=== PATIENT | female | born 1940 | race Caucasian/White ===

== ENCOUNTER 2024-12-11 08:13 | Emergency (ER) | payer MEDICARE, SELFPAY ==
--- OUTSIDE RECORDS SUMMARY | 2016-10-01 05:15 | XMS_ITS | Continuity of Care Document ---
[facility] Organization [facility] Address [address] [place] [address] Phone Care Team Providers [employer] Occupational Therapist Name Role Phone Ryan Verma MD Unavailable Unavailable Allergies, Adverse Reactions, Alerts Substance Reaction Status Criticality No Known Drug Allergies Other Active No I nformation Advance Directives Directive Yes / No Effective Date File Name No Information Encounters Encounter Description Practice Location Reason(s) For Visit Diagnoses Date Provider Providers Copied on Encounter [facility], [address], [place], [place], [address] , tel: [phone] [facility] No Information [address], [place], [address], [place]. tel: [phone] [facility], [address], [place], [place], [address] , tel: [phone] [facility] TOBACCO USE DISORDERHYPERLIPI DEMIA NEC/NOSVACCIN FOR INFLUENZA [address], [address], [place], [place], [address], [place]. tel: [phone] [facility], [address], [place], [place], [address] , tel: [phone] [facility] CHR KIDNEY DIS STAGE IIICHRONIC KIDNEY DIS NOSLONG-TERM USE MEDS NEC [address], [address], [place], [place], [address], . tel:[phone] [facility], [address], [place], [place], [address] , tel: [phone] [facility] SCREEN MAMMOGRAM NECASYMPT POSTMENO STATUS 7 [facility]. [address], [place], [address], [place]. [facility], [address], [place], [place], [address] , tel: [phone] [facility] BENIGN HYPERTENSIONSCREE N LIPOID DISORDERS [address]. [address], [address], [place], [place], [address], . tel:[phone] [facility], [address], [place], [place], [address] , tel: [phone] [facility] HERPES ZOSTER NOS [address]. [address], [address], [place], [place], [address], [place]. tel:[phone] Family History Family Member Type Diagnosis Age At Onset No Information Payers Payer name Insurance type Covered alliance party ID Authoriza tion(s) No Information Social History Type Description Quantity Date Captured Comments Alcohol Use Details Unknown Caffeine Use Details Unknown Tobacco Use Status No Information Smoking Status No Information Sex Female Chief Complaint And Reason For Visit No Information Reason For Referral Reason For Referral No Information History Of Present Illness Encounter Date Complaint History Of Prese nt Illness No Information Functional Status Date Functional Assessmen t No Information Instructions Date Instruction Additional Infor mation No Information Assessments Type Assessment Date No Information Patient Care Teams Name Effective Dates (start - stop) Status Members No Information
--- OUTSIDE RECORDS SUMMARY | 2024-12-09 05:15 | XMS_ITS | Continuity of Care Document ---
Author Organization [facility] Address [address] [facility] [address] [place] [address] Phone Care Team Providers Care Knuckle Bender Name Role Phone Blane MONREAL, Shahida Unavailable Unavailable Allergies, Adverse Reactions, Alerts Substance Reaction Status Criticality No Known Allergies Active No Inform ation Medications Medication Instructions Dosage Effective Dates (start - stop) Status Comments Refresh Tears 0.5 % eye drops instill 1 drop by ophthalmic route every day 1 drop - Active Vitamin D 25 mcg (1000 unit) ORAL TABLET - Active Vazalore 81 mg capsule take 1 capsule by oral route every day 81 MG - Active atorvastatin 80 mg tablet take 1 tablet by oral route every day 80 MG - Active midodrine 5 mg tablet take 2 tablet by o ral route 3 times every day 10 MG - Active carvedilol 6.25 mg tablet take 1 tablet by oral route 2 times every day with food 6.25 MG - Active sacubitril 24 mg-valsartan 26 mg tablet take 1 tablet by oral route every day 1 tablet - Active Jardiance 10 mg tablet take 1 tablet by oral route every day in the morning 10 MG - Active ticagrelor 90 mg tablet take 1 tablet by oral route 2 times every day 90 MG - Active oxybutynin chloride 5 mg/5 mL oral syrup take 5 milliliter by oral route 2 times every day 5 MG - Active Trimo-Ferrell Jelly 0.025 %-0.01 % vaginal - Active Calcium 650 mg ORAL TABLET - Active Calcium 800 ORAL TABLET 1 tablet by mouth once a day - Active Vitamin D3 1,000 unit capsule take 1 by oral route every day 1 - Active Procedures Procedure Date No Charge Optomap Fundus Photos 025 SCODI, Retina Eye Exam & Treatment Drops For Reversing Dilation Ryzumvi Nov Refraction Fundus Photography W/ Report Eye Exam & Treatment Fundus Photography W/ Report Eye Exam & Treatment Fundus Photography W/ Report Eye Exam & Treatment Fundus Photography W/ Report Eye Exam & Treatment Eye Exam & Treatment Eye Exam & Treatment Eye Exam & Treatment Eye Exam & Treatment Post-op Follow-up Visit Office/outpatient Visit, Est After Cataract Laser Surgery Eye Exam & Treatment Eye Exam & Treatment Office/outpatient Visit, Est Post-op Follow-up Visit Post-op Follow-up Visit Post-op Follow-up Visit Remove Cataract, Insert Lens Echo Exam Of Eye-Professional Oct--201 1 Office/outpatient Visit, Est Post-op Follow-up Visit After Cataract Laser Surgery Office/outpatient Visit, Est Office/outpatient Visit, Est Office/outpatient Visit, Est Post-op Follow-up Visit Post-op Follow-up Visit Remove Cataract, Insert Lens Office/outpatient Visit, Est Echo Exam Of Eye Office/outpatient Visit, Est Advance Directives Directive Yes / No Effective Date File Name No Information Encounters Encounter Description Practice Location Reason(s) For Visit Diagnoses Date Provider Providers Copied on Encounter [facility], [address], [place], [place], [address], [place] tel:[phone] SEC [facility] GUILLEN Professional Complete Exam (chief complaint) Nexdtve age-related mclr degn, bilateral, early dry stageChoroida l nevus of right eyePuckering of macula, right eyePresence of intraocular lensVitreous degeneration, left eyeDry eye syndrome of bilateral lacrimal glands Sep-2 5 Blane OD Shahida. [address], [address], [place], [place], [address], [place]. tel:[phone] Referring Provider: Sarbjit Martínez OD, [facility] [address] [place], [address]. tel:[phone] [facility], [facility] [address], [place], [place], [address], [place] tel:[phone] SEC [facility] [place] Professional Complete Exam (chief complaint) Choroidal nevus of right eyePuckering of macula, right eyePresence of intraocular lensVitreous degeneration, left eyeNexdtve age-related mclr degn, bilateral, early dry stage Aug-0 4 Blane OD Shahida. [address], [address], [place], [place], [address], [place]. tel:[phone] Referring Provider: Sarbjit Martínez OD, [facility] [address] [place], [address]. tel:[phone] [facility], [facility] [address], [place], [place], [address], [place] tel:[phone] SEC [place] Professional Complete Exam (chief complaint) Presence of intraocular lensChoroidal nevus of right eyePuckering of macula, right eye July- 3 Dheeraj Figueroa. [address] [facility], [address], [place], [place], [address], [place]. tel:[phone] Referring Provider: Sarbjit Martínez OD, [facility] [address] [place], [address]. tel:[phone] [facility], [facility] [address], [place], [place], [address], [place] tel:[phone] [facility] Professional Complete Exam (chief complaint) Choroidal nevus of right eyePresence of intraocular lensDrusen (degenerative ) of macula, left eye May-0 6-202 2 Dheeraj Figueroa. [address] [facility], [address], [place], [place], [address], [place]. tel:[phone] Referring Provider: Sarbjit Martínez OD, [facility] [address] [place], [address]. tel:[phone] [facility], [address], [place], [place], [address], [place] tel:[phone] SEC [facility] Professional Complete exam (chief complaint) Drusen (degenerative ) of macula, left eyePresence of intraocular lensVitreous degeneration, left eyeChoroidal nevus of right eye May-0 4-202 1 Dheeraj Figueroa. [address] [facility], [address], [place], [place], [address], [place]. tel:[phone] Referring Provider: Sarbjit Martínez OD, [facility] [address] [place], [address]. tel:[phone] [facility], [address], [place], [place], [address], [place] tel:[phone] [facility] Professional Complete Exam (chief complaint) Presence of intraocular lensChoroidal nevus of right eyeVitreous degeneration, left eyeDrusen (degenerative ) of macula, left eye May-0 4-202 1 Dheeraj Figueroa. [address] [facility], [address], [place], [place], [address], [place]. tel:[phone] Referring Provider: Sarbjit Martínez OD, [facility] [address] [place], [address]. tel:[phone] [facility], [address], [place], [place], [address], [place] tel:[phone] [facility] Professional Complete Exam (chief complaint) RPE mottling of maculaVitreou s degeneration, bilateralChor oidal nevus of right eyeDry eye syndrome of bilateral lacrimal glands 0 Dheeraj Figueroa. [address] [facility], [address], [place], [place], [address], [place]. [phone] Referring Provider: Sarbjit Martínez OD, [facility] [address] [place], [address]. tel:[phone] [facility], [address], [place], [place], [address], [place] tel:[phone] [facility] Professional Complete Exam (chief complaint) Presence of intraocular lensRPE mottling of maculaDrusen (degenerative ) of macula, bilateralChor oidal nevus of right eye 9 Dheeraj Figueroa. [address] [facility], [address], [place], [place], [address], [place]. tel:[phone] Referring Provider: Sarbjit Martínez OD, [facility] [address] [place], [address]. tel:[phone] [facility], [address], [place], [place], [address], [place] [phone] [facility] Professional No Information 9 Dheeraj Figueroa. [address] [facility] [address], [place], [place], [address], [place]. tel:[phone] [facility], [address], [place], [place], [address], [place] tel:[phone] [facility] Professional Complete Exam (chief complaint) Presence of intraocular lensNexdtve age-related mclr degn, bilateral, early dry stage Dec-2 7 Jody Mendez. [address] [place], [address], [place]. tel:[phone] Referring Provider: Sarbjit Martínez OD, [facility] [address] [place], [address]. tel:[phone] [facility], [address], [place], [place], [address], [place] tel:[phone] [facility] [place] Professional Complete Exam (chief complaint) No Information 9-201 6 Wankum Melvin. [address], [place], [place], [address], [place]. tel:[phone] Referring Provider: Sarbjit Martínez OD, [facility] [address] [place], [address]. tel:[phone] [facility], [address] [place] [address] [address], [place], [place], [address], [place] tel:[phone] [facility] [place] Professional 1 month S/P YAG PC OD (chief complaint) No Information 5-201 5 Wankum Melvin. [address], [place], [place], [address], [place]. tel:[phone] Referring Provider: Sarbjit Martínez OD, [facility] [address] [place], [address]. tel:[phone] Office/outpa tient Visit, Est [facility], [address] [place] [address] [address], [place], [place], [address], [place] tel:[phone] [place] Professional Dry eyes (chief complaint) No Information 0-201 5 Wankum Melvin. [address], [place], [place], [address], [place]. tel:[phone] Referring Provider: Sarbjit Martínez OD, [facility] [address] [facility], [place], [address]. tel:[phone] [facility], [address] [place] [address] [address], [place], [place], [address], [place] tel:[phone] [facility] GUILLEN Professional No Information 0 9-201 4 Wankum Melvin. [address] [facility], [facility] [place], [place], [address], [place]. tel:[phone] Referring Provider: Sarbjit Faithvahe OD, [facility] [address] [place], [address]. tel:[phone] [facility], [address] [place] [address] [address], [place], [place], [address], [place] tel:[phone] [facility] GUILLEN Professional No Information 4- 3 Wankjasmine Charles. [address] [facility], [facility] [place], [address], [place]. tel:[phone] Referring Provider: Sarbjit Mauricio OD, [facility] [address] [place], [address]. tel:[phone] Office/outpa tient Visit, [facility], [address], [place], [place], [address], [place] tel:[phone] [facility] GUILL[facility] Professional No Information 2 Wankjasmine Charles. [address] [facility], [facility] [place], [address], [place]. tel:[phone] Referring Provider: Sarbjit Faithvahe OD, [facility] [address] [place], [address]. tel:[phone] [facility], [address], [place], [place], [address], [place] tel:[phone] [facility] GUILLEN Professional No Information 1 No Information Referring Provider: Sarbjit Faithvahe OD, [facility] [address] [place], [address]. tel:[phone] [facility], [address], [place], [place], [address], [place] tel:[phone] [facility] GUILLEN Professional No Information Jan-0 1 No Information Referring Provider: Sarbjit Martínez OD, [facility] [address] [place], [address]. tel:[phone] [facility], [address], [place], [place], [address], [place] tel:[phone] [facility] GUILLEN Professional No Information Dec-2 1 No Information Referring Provider: Sarbjit Martínez OD, [facility] [address] [place], [address]. tel:[phone] [facility], [address] [place] [address] [address], [place], [place], [address], [place] tel:[phone] [facility] No Information Dec-2 1 Jose Ernie. [facility], [address], [place], [place], [address], [place]. tel:[phone] Referring Provider: Sarbjit Martínez OD, [facility] [address] [place], [address]. tel:[phone] [facility], [address], [place], [place], [address], [place] tel:[phone] SEC David Ramirez No Information Dec-2 1 [place] Ernie. [address], [address], [place], [place], [address], [place]. tel:[phone] Referring Provider: Sarbijt Martínez OD, [facility] [address] [place], [address]. tel:[phone] Office/outpa tient Visit, [facility], [address], [place], [place], [address], [place] tel:[phone] [facility] GUILLEN Professional No Information Sep-1 3-201 1 Jose Klein. [address] [place] [address] [address], [address], [place], [place], [address], . tel:[phone] Referring Provider: Sarbjit Martínez OD, [facility] [address] [place], [address]. tel:[phone] [facility], [address] [place] [address] [address], [place], [place], [address], [phone] [facility] Professional No Information Sep-0 7201 1 Wankum Melvin. [address] [facility] [place], [address], . tel:[phone] Referring Provider: Sarbjit Faithvahe OD, [facility] [address] [place], [address]. tel:[phone] [facility], [address] [place] [address] [address], [place], [place], [address], tel:[phone] [place] Professional No Information Jourdan-2 0 1 Wankum Melvin. [address] [facility] [place], [place], [address], [place]. tel:[phone] Referring Provider: Sarbjit Martínez OD, [facility] [address] [place], [address]. tel:[phone] Office/outpa tient Visit, Est [facility], [address] [place] [address] [address], [place], [place], [address], [place] tel:[phone] SEC [facility] DC Professional No Information Aug-0 6 1 Wankum Melvin. [address] [facility] [place], [address], . tel:[phone] Referring Provider: Sarbjit Martínez OD, [facility] [address] [place], [address]. tel:[phone] Office/outpa tient Visit, Est [facility], [address], [place], [place], [address], [place] [phone] [facility] GUILLEN Professional No Information 4-201 0 Wankum Melvin. [address], [address], [place], [address], [place]. tel:[phone] Referring Provider: Sarbjit Martínez OD, [facility] [address] [place], [address]. tel:[phone] Office/outpa tient Visit, Est [facility], [address], [place], [place], [address], [place] [phone] [facility] GUILLEN Professional No Information 9200 9 Wanabdullahi Charles. [address] [employer], [facility] [place], [place], [address], [place]. tel:[phone] Referring Provider: Sarbjit Martínez OD, [facility] [address] [place], [address]. tel:[phone] [facility], [address], [place], [place], [address], [place] tel:[phone] [facility] DC Professional No Information 0200 8 Morgan Aly. [address], [place], [address], [place]. tel:[phone] Referring Provider: Sarbjit Martínez OD, [facility] [address] [place], [address]. tel:[phone] [facility], [address], [place], [place], [address], [place] tel:[phone] [facility] GUILLEN Professional No Information 8-200 8 Morgan Aly. [address], [place], [address], [place]. tel:[phone] Referring Provider: Sarbjit Martínez OD, [facility] [address] [place], [address]. tel:[phone] [facility], [address] [place] [address] [address], [place], [place], [address], [place] tel:[phone] [facility] No Information 8 Morgan Aly. [address], [place], [address], [place]. tel:[phone] Referring Provider: Sarbjit Martínez OD, [facility] [address] [place], [address]. tel:[phone] Office/outpa tient Visit, [facility], [address] [place] [address] [address], [place], [place], [address], [place] tel:[phone] [facility] Professional No Information 7 Morgan Aly. [address], [place], [address], [place]. tel:[phone] Referring Provider: Sarbjit aMrtínez OD, [facility] [address] [place], [address]. tel:[phone] Office/outpa tient Visit, [facility], [address] [place] [address] [address], [place], [place], [address], [place] tel:[phone] [facility] Professional No Information 7 Lyle Charles. [address], [address], [place], [address], [place]. tel:[phone] Referring Provider: Sarbjit Martínez OD, [facility] [address] [place], [address]. tel:[phone] Family History Family Member Type Diagnosis Age At Onset No Information Payers Payer name Insurance type Covered libertarian ID Authoriza tion(s) [employer] Mdcr Gold Adv Prime CI [id number] Social History Type Description Quantity Date Captured Comments Alcohol Use Details No Caffeine Use Details 3 cups per day Tobacco Use Status Ex-cigarette smoker 025 Smoking Status Former smoker Smoking Tobacco Use Details Cigarette: Age Stopped: 49 Cigarette: No Details Available Sex Female Gender Identity Female Chief Complaint And Reason For Visit From encounter dated '12/09/2024 10:15'. Complete Exam (chief complaint). Description: The 84 year old patient presents for a complete exam ou. Monitoring Drusen ou. Patient pseudo OU and yag caps ou, monitoring AMD OU. Patient thinks she has dry eyes and her eyes seem wet all the time. Patient thinks her eyes are blurry from an unknown medication that she takes. Patient interested in Ryzumvi Reason For Referral Reason For Referral No Information Plan Of Treatment Date Type Action Status Goal Tobacco cessation counseling completed Goal Tobacco cessation counseling completed Goal Tobacco cessation counseling completed Goal Tobacco cessation counseling completed Goal Tobacco cessation counseling completed Goal Tobacco cessation counseling completed Goal Tobacco cessation counseling completed Goal Tobacco cessation counseling completed Goal Tobacco cessation counseling completed Appointment Simran Rice BOOKED Patient Education Age-Related Ma cular Degeneration: Care Instructions completed Patient Education Age-Related Ma cular Degeneration: Care Instructions completed Patient Education Learning About YAG Lase r Capsulotomy completed Patient Education Learning About Retinal Drusen completed Patient Education Learning About Retinal Drusen completed Patient Education Learning About Retinal Drusen completed Patient Education Dry Eyes: Care Instruct ions completed Patient Education Learning About Your Eye s completed History Of Present Illness Encounter Date Complaint History Of Prese nt Illness Complete Exam The 84 year old patient presents for a complete exam ou. Monitoring Drusen ou. Patient pseudo OU and yag caps ou, monitoring AMD OU. Patient thinks she has dry eyes and her eyes seem wet all the time. Patient thinks her eyes are blurry from an unknown medication that she takes. Patient interested in Ryzumvi Complete Exam The 83 year old patient presents for evaluation of Complete Exam in the right eye and left eye. Pt states that since last year they have been having a hard time reading the print on Medicine bottles. Complete Exam The 82 year old patient presents for evaluation of Complete Exam in the right eye and left eye. Patient states she has dry eyes and uses Refresh qd OU seems to help wants to know if she should be using it more. VA seems stable OU. Complete Exam The 81 year old patient presents for a complete exam ou. Patient has PCIOL OS and ACIOL OD and yag caps ou. Monitoring choroidal nevus OD. Patient c/o a film on her eyes and has to blink to clear up. Patient notices it more when she is outside. Patient uses Refresh prn. Complete exam The 80 year old female presents for evaluation of Complete exam in the right eye and left eye. Hx PCIOL OS, ACIOL OD, Yag PC OU, Drusen OU. Pt reports stable vision in current spec Rx since last visit. Pt reports occasional burning and itching OU, she uses ATs prn OU for these symptoms. Complete Exam The 80 year old female presents for evaluation of Complete Exam in the right eye and left eye. Hx PCIOL OS, ACIOL OD, Yag PC OU, Drusen OU. Pt reports stable vision in current spec Rx since last visit. Pt reports occasional burning and itching OU, she uses ATs prn OU for these symptoms. Complete Exam The 79 year old female presents for evaluation of Complete Exam in the right eye and left eye. Hx of PCIOL OU, YAG PC OU, JACQUELYN OU, and Nevus OD. Pt reports OU has a film that comes over her VA, intermittent, blinking helps, x 6 mos or so. Pt reports she doesn't use any gtts, OU. Complete Exam The 78 year old female presents for evaluation of Complete Exam in the right eye and left eye. Hx of PCIOL OU, YAG OU, Severe RPE Mottling OU, and AMD OU. Patient denies any problems or changes with eyes. Patient not taking an eye vitamin. Complete Exam The 76 year old female presents for Complete Exam in the right eye and left eye. Hx of PCIOL OU, YAG PC OU, JACQUELYN OU and RPE mottling OU. Pt reports she doesn't use any gtts and no pain, irritation or discomfort today, OU. Pt denies any changes in VA, OU, DV and NV, since last appt. Pt reports she is currently using a cream for skin cancer on nose, but she doesn't know the name of it. Complete Exam The 75 year old female presents for Complete Exam in the right eye and left eye. Hx Phaco W/IOL OU, Yag PC OU. PT states vision has not changed since last exam. Pt states she is not using any eye drops. Pt states no pain/discomfort. 1 month S/P YAG PC OD The 74 yea r old female presents for a 1 month S/P YAG PC OD. Va seems good since the laser. Dry eyes The 74 year old female presents for a complete exam. Patient c/o about 3 weeks ago had spider veins wiggling in OS that seemed to last all night. Patient doesn't notice anymore. Patient c/o OD seems a little more cloudy. Functional Status Date Functional Assessmen t No Information Instructions Date Instruction Additional Infor lelo Impression/Plan Impression/Plan Impression/Plan Impression/Plan Impression/Plan Impression/Plan Impression/Plan Impression/Plan Return in 1 year haim Vera M.D. for Complete Exam. Related to Presence of intraocular lens Impression/Plan - Co ndition appears mild, not affecting vision. Recommend AREDS 2 formula BID OU. Patient is a smoker, informed patient smoking can increase progression of AMD. Will continue to monitor. Related to Nexdtve age-related mclr degn, bilateral, early dry stage Impression/Plan - Di scussed exam findings with patient. IOL's in good position, open pc OU. IOP is stable. Return in 1 year for complete exam or sooner with problems. Related to Presence of intraocular lens Follow up - Return i n 1 year with Vanessa Vera M.D. for Complete Exam. Related to Presence of intraocular lens Presence of intraocu lar lens - Educational material provided Related to Presence of intraocular lens Dry eye syndrome of bilateral lacrimal glands - Educational material given Related to Dry eye syndrome of bilateral lacrimal glands Follow up - Return i n 1 year with Melvin Alvarenga M.D. for Complete Exam. Impression/Plan - Di scussed diagnosis in detail with patient. IOL's in good position, open pc. RPE OS discussed, recommend AREDS 2 formula PO QD as preventative. Recommend artificial tears and in-home humidifier for dry eyes. No signs of Glaucoma. Return to clinic in 1 year for complete exam or sooner with any problems. - Discussed good pos t op course OD since YAG PC. IOL and PC stable OU now. RTC 1 year or sooner if needed. Related to See list of assessments above - No signs of retina l tear OS. Proceed with Yag PC OD as scheduled. Patient tolerated procedure well, open PC. Return in 1 month for Post Op Yag PC OD or sooner with any problems. Related to See list of assessments above - Return in 1 month with Melvin Alvarenga M.D. for post op exam Related to See list of assessments above General plan -LENS R EPLACEMENT NEC -After-cataract not obscuring vision -Dry Eye Syndrome - IOLs doing well. Discussed YAG PC OD for future treatment. Pt will monitor any va changes. Discussed JACQUELYN and the use of ATs. Samples of ATs provided to pt. Pt using Pred 2mg. RTC in 1 year for a complete exam. Educational materials provided:about today's exam. Related to See impression: general plan - RTC in 1 year for a complete e xam Related to See impression: general plan - 1yr pseudo ou with capsu lotomy os and minimal pc haze od - pt will call if thinks needs yag pc od - 3 months or sooner prn Related to FOLLOW-UP SURGERY NOS FOLLOW-UP SURGERY NO S, OD - established, stable - vision improved - controlled with meds3 weeks sp ce iol od doing greatsuture removed at sl with preproced. dilute betadine/proparacaine tolerated well - finish course tobra taperat's/ll qhs Related to FOLLOW-UP SURGERY NOS - 2 Weeks Related to FOLLO W-UP SURGERY NOS FOLLOW-UP SURGERY NO S, OD - established, stable - vision improved - controlled with meds - finish course tobradexsuture removal 2 weeks Related to FOLLOW-UP SURGERY NOS - 1 Week Related to FOLLO W-UP SURGERY NOS FOLLOW-UP SURGERY NO S, OD - established, stable - vision affected - controlled with medssuture trimmed at sl today with pre-post abx gtts - begin tobradex qid odpt to call for any redness, discharge, increasing pain or worsening vision Related to FOLLOW-UP SURGERY NOS Pseudophakia, OS - v ision affected - will continue to monitor - Will continue to observe condition and or symptoms. Related to Pseudophakia - SCHED CE OD Related to Catar act, Nuclear Sclerosis Cataract, Nuclear Sc lerosis, OD - established, worsening - vision affected - may improve with surgery - Discussed cataract diagnosis with the patient. Discussed and reviewed treatment options for cataracts. Risks and benefits of surgical procedure were explained and understood. Reassured patient and will continue to monitor. Risks and benefits of surgical treatment were discussed and understood. Patient elects surgical treatment. Related to Cataract, Nuclear Sclerosis Assessments Type Assessment Date assessment Nexdtve age-related mclr degn, b ilateral, early dry stage assessment Choroidal nevus of right eye Nov assessment Puckering of macula, right eye S assessment Presence of intraocular lens Nov assessment Vitreous degeneration, left eye assessment Dry eye syndrome of bilateral la crimal glands Patient Care Teams Name Effective Dates (start - stop) Status Members No Information
--- NOTE | ~2024-12-11 | XR_ITS ---
Examination: XR chest 2V Clinical History: COUGH, HX SMOKING Comparison: None Technique: PA and Lateral Findings: Cardiomediastinal silhouette normal size and configuration. Lungs clear. Hyperinflation. No acute bony abnormality. Osteopenia. IMPRESSION: 1. No acute cardiopulmonary findings. Reviewed, dictated and finalized at location R.
[2024-12-11 08:21] VITALS: BP 119/50; PULSE 58; RESP 16; TEMP 36.6; O2SAT 100
--- OUTSIDE RECORDS SUMMARY | 2024-12-11 08:21 | XMS_ITS | Clinical Summary ---
Author Organization [facility] [address] [place] [address] Care Team Providers Care Shotgun Shell Reprinting Unit Operator Name Role Phone Alonzo Flores MD Primary Care Provider + Eduardo Abrams MD Unavailable [phone] Allergies No known active allergies Medications calcium carbonate/vitam in D3 (CALCIUM 600 WITH VITAMIN D3 ORAL) Take 1 tablet by mouth daily Active aspirin 81 mg enteric coated tabletIndicatio ns:cardiovascul ar disease Take 1 tablet (81 mg total) by mouth daily 30 tablet 12/17/2023 Active carvediloL (COREG) 6.25 mg tabletIndicatio ns:cardiovascul ar disease Take 1 tablet (6.25 mg total) by mouth 2 (two) times a day 60 tablet 11 01/18/2024 5 Active oxyBUTYnin XL (DITROPAN-XL) 5 mg 24 hr tablet Take 1 tablet (5 mg total) by mouth daily 10/28/2023 Active sacubitriL-vals óscar (ENTRESTO) 24-26 mg tabletIndicatio ns:chronic heart failure Take 0.5 tablets by mouth 2 (two) times a day 30 tablet 11 02/15/2024 5 Active empagliflozin (JARDIANCE) 10 mg tabletIndicatio ns:Heart Failure Take 1 tablet (10 mg total) by mouth daily 30 tablet 11 03/14/2024 5 Active ticagrelor (BRILINTA) 90 mg tabletIndicatio ns:cardiovascul ar disease Take 1 tablet (90 mg total) by mouth 2 (two) times a day 60 tablet 11 03/14/2024 Active alendronate (FOSAMAX) 70 mg tablet Take 1 tablet (70 mg total) by mouth once a week 05/09/2024 Active atorvastatin (LIPITOR) 80 mg tablet TAKE 1 TABLET BY MOUTH EVERY DAY 30 tablet 11 08/15/2024 Active Active Problems Problem Noted Date Diagnosed Date History of CAD (coronary artery disease) 024 CAD (coronary artery disease) 12/14/2023 ST elevation myocardial infa rction involving right coronary artery 12/14/2023 Hyperlipidemia 02/20/2020 Osteoporosis 02/20/2020 Primary osteoarthritis of fi rst carpometacarpal joint of left hand 02/20/2020 Trigger middle finger of left hand 08/12/2018 Carpal tunnel syndrome, bilateral 07/26/2018 Trigger ring finger of left hand 07/26/2018 Arthritis 11/28/2015 Fibromyalgia 11/28/2015 Surgical History Surgery Date Site/Laterality Comments TUBAL LIGATION CATARACT EXTRACTION W/ INTRAOCULAR LENS IMPLANT Bilateral COLONOSCOPY CARPAL TUNNEL RELEASE Right Medical History Medical History Date Comments History of ileus Arthritis Carpal tunnel syndrome on right Trigger finger, left ring finger Family History Medical History Relation Name Comments rupture of ulcer Father COD Cancer Mother Relation Name Status Comments Father Mother Social History Tobacco Use Types Packs/Day Years Used Date Smoking Tobacco: Every Day Cigarettes 0.5 50 Smokeless Tobacco: Never Tobacco Cessation:Ready to Q uit: Not Asked; Counseling Given: Not Answered Comments:Counselled pt to contact PCP for assist with quitting, instructed pt not to smoke for 24 rhs prior to surgery. Alcohol Use Standard Drinks/Week Comments Yes 1 (1 standard drink = 0.6 oz pur e alcohol) occasionally [employer] Util[employer] Answer Date Recorded In the past 12 months has [employer], gas, oil, or water [employer] threatened to shut off services in your home? No 12/15/2023 Social Connection and Isolation Panel Answer Date Recorded In a typical week, how many times do you talk on the phone with family, friends, or neighbors? More than three times a week 12/15/2023 How often do you get togethe r with friends or relatives? More than three times a week 12/15/2023 How often do you attend [facility] or oriental orthodox services? Patient unable to answer 12/15/2023 Do you belong to any clubs o r organizations such as hindu groups, unions, fraternal or athletic groups, or school groups? No 12/15/2023 How often do you attend meet ings of the clubs or organizations you belong to? Never 12/15/2023 Are you , , di vorced, , never , or living with a partner? 12/15/2023 Overall Financial Resource Strain (CARDIA) Answe r Date Recorded How hard is it for you to pa y for the very basics like food, housing, medical care, and heating? Not hard at all 12/15/2023 Hunger Vital Sign Answer Date Recorded Within the past 12 months, y ou worried that your food would run out before you got the money to buy more. Never true 12/15/19 24 Within the past 12 months, t he food you bought just didn't last and you didn't have money to get more. Never true 12/15/2023 PRAPARE - Transportation Answer Date Re corded In the past 12 months, has l ack of transportation kept you from medical appointments or from getting medications? No 03/2023 In the past 12 months, has l ack of transportation kept you from meetings, work, or from getting things needed for daily living? No 12/15/2023 Housing Stability Vital Sign Answer Marco Antonio e Recorded In the last 12 months, was t here a time when you were not able to pay the mortgage or rent on time? No 12/15/2023 In the past 12 months, how m any times have you moved where you were living? 0 12/15/2023 At any time in the past 12 m [facility], were you homeless or living in a skilled nursing (including now)? No 12/15/2023 Personal Safety Answer Date Recorded Have you ever been in or are you currently in a harmful physical or emotional relationship or is someone making you feel afraid or unsafe? 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 Gender Identity Not on file Sexual Orientation Not on file Obstetrics History Last Filed Vital Signs Vital Sign Reading Time Taken Comments Blood Pressure 147/61 07/21/2024 11:51 AM CDT Pulse 52 07/21/2024 11:51 AM CDT Temperature 36.7 C (98.1 F) 12/16/2023 11:56 AM CDT Respiratory Rate 18 07/21/2024 11:51 AM CDT Oxygen Saturation 96% 12/16/2023 11:56 AM CDT Inhaled Oxygen Concentration - - Weight 64 kg (141 lb) 07/21/2024 11:51 AM CDT Height 170.2 cm (5' 7) 07/21/2024 11:51 AM CDT Body Mass Index 22.08 07/21/2024 11:51 AM CDT Plan of Treatment Health Maintenance Due Date Last Done Comments Depression Screening 1940 Hepatitis B Screening 1958 Well Visit 65+ 2004 DTaP/Tdap/Td Vaccine (1 - Tdap) 05/15/2009 0 Covid-19 Vaccine (3 - 2024-2 6 season) 2024 04/30/2020, 04/09/2020 Influenza Vaccine (#1) 2024 , 12/02/2021, 12/27/2020, Additional history exists Fall Risk Assessment 12/15/2024 12/16/2023 Osteoporosis Screening-Bone Density Scan 05/06/2026 05/06/2024, 05/06/2024, 12/24/2017, Additional history exists Pneumococcal vaccine 65+ Completed 11/28/2015, 03/2008 Zoster Vaccine Completed 03/13/2019, 12/16, 05/27/2016 Medical Devices Implanted Type Area Footwear Stitcher Device Identifier Shelf Expiration Date Model / Serial / Lot Filtec Stent Coronary Drug Eluting Rapid Exchange Synergy Xd [id number] [place] [employer] [id number] - [id number] Implanted:Qty: 1 on 12/14/2023 by Ally Millan MD at [facility] Entrisphere Clif 04/07/2025 [id number] / / [id number] [employer] Angio-Seal Vip 6fr Closere Device [id number] - [id number] Implanted:Qty: 1 on 12/14/20[facility] [id number] / / [facility] Advance Directives For more information, please contact: [phone] * Full Code (Latest Code Status on File) Date Activated Date Inactivated Comments 12/14/2023 6:07 PM 12/16/2023 7:06 PM Care Teams Shotgun Shell Reprinting Unit Operator Relationship Specialty Start Date End Date Alonzo Flores MD PCP - General Internal Medicine 07/12/18 Eduardo Abrasm MD Surgeon Orthopedic Surgery 03/15/20
--- OUTSIDE RECORDS SUMMARY | 2024-12-11 08:21 | XMS_ITS | Encounter Summary ---
Author Organization [facility] Address [address] [place] [address] Phone Care Team Providers Care Maternity Nurse Name Role Phone Alonzo Flores MD Primary Care Provider [phone] Melvin Alvarenga MD Unavailable [phone] Ganesh Duenas MD Unavailable [phone] Henry Esqueda MD Unavailable [phone] Chun Ramírez DELIVERY DRIVER, [facility] Unavailable [phone] Reason for Visit * Reason Comments Medication Refill Encounter Details Date Type Department Care Team (Late st Contact Info) Description 07/15/2022 Refill [facility] Medical Group - Obstetrics & Gynecology [facility] [address] [place] [phone] Ganesh Duenas MD [address] [place] [address] Medication Refill Social History Tobacco Use Types Packs/Day Years Used Date Smoking Tobacco: Every Day Cigarettes 0.5 68.2 Started: 09/25/1957 Smokeless Tobacco: Never Alcohol Use Standard Drinks/Week Comments No 0 (1 standard drink = 0.6 oz pur e alcohol) PHQ-2 Answer Date Recorded Total Score - Questions 1-9 0 01/0 06/2020 Sexually Active Control Partners Comments Not Currently Comments No Sex and Gender Information Value Date Recorded Sex Assigned at Not on file Legal Sex Female 9:21 PM CDT Gender Identity Not on file Sexual Orientation Not on file documented as of this encounter Miscellaneous Notes * Telephone Encounter - Ganesh Duenas MD - 07/15/2022 4:01 PM CDT OK to refill. * Telephone Encounter - Swapna Pritchard RN - 07/15/2022 8:51 AM CDT Last OV December 2021 Per nursing clinical judgement, provider to review and approve the medication(s) order(s) if appropriate. Requested Prescriptions Pending Prescriptions Disp Refills Trimo-Ferrell 0.025-0.01 % Gel [Pharmacy Med Name: Trimo-Ferrell 0.025-0.01 % Vaginal Gel] 114 g 0 Sig: USE 1/2 (ONE-HALF) APPLICATORFUL PER VAGINA ONCE A WEEK AT BEDTIME DIRECTED Not Delegated - Off Protocol Failed - 07/15/2022 8:22 AM Failed - This refill cannot be delegated Passed - Visit with relevant provider in past 12 months or upcoming 90 days Recent Visits Date Type Provider Dept 04/21/22 Office Visit [place]onzo [place] [facility] [employer] [facility] 02/24/22 Office Visit [place]onzo Flores [place] [facility] [employer] [facility] 01/15/22 Office Visit Alonzo Flores [place] [facility] [employer] [facility] 12/24/21 Office Visit Ganesh Duenas MD [facility] [employer] [place] 10/14/21 Office Visit [place]onzo Flores [place] [facility] [employer] [facility] 09/03/21 Office Visit Alonzo Flores [place] [facility] [employer] [facility] Showing recent visits within past 365 days and meeting all other requirements Future Appointments No visits were found meeting these conditions. Showing future appointments within next 90 days and meeting all other requirements * Telephone Encounter - Swapna Pritchard RN - 07/15/2022 8:21 AM CDT Request for refill. Order pended, documented in this encounter Plan of Treatment Upcoming Encounters Date Type Department Care Team (Late st Contact Info) Description 01/10/2025 1:00 PM CDT Office Visit [facility] Medical [facility] - Obstetrics & Gynecology - [place] [address] [facility] [place] [address] Ganesh Duenas MD [address] [place] [address] 01/27/2025 8:30 AM RACK PUNCHER Office Visit [facility] - Primary Care - [place] [address] [place] [id number] Alonzo Flores MD [address] [place] [address] documented as of this encounter Visit Diagnoses Not on filedocumented in this encounter Additional Health Concerns Assessment Noted Time PHQ-9 Depression Total Score: 0 03/19/19 21 2:00 PM RACK PUNCHER documented as of this encounter Care Teams Maternity Nurse Relationship Specialty Start Date End Date Alonzo Flores MD [address] [place] [address] PCP - General Internal Medicine 11/22/14 Melvin Alvarenga [place] [address] [place] [address] Consulting Physician Ophthalmology 02/11/16 07/23/22 Ganesh Duenas MD [address] [place] [address] Consulting Physician Obstetrics & Gynecology 12/23/21 Henry Esqueda MD [address] [place] [address] Consulting Physician Ophthalmology 07/24/22 Chun Ramírez APRN, CABINET BUILDER [address] [place] [address] Nurse Practitioner Cardiology 01/22/24 documented as of this encounter
--- OUTSIDE RECORDS SUMMARY | 2024-12-11 08:21 | XMS_ITS | Encounter Summary ---
Author Organization [facility] Address [address] [place] [address] Phone Care Team Providers Care Pillow Filler Name Role Phone Alonzo Flores MD Primary Care Provider [phone] Melvin Alvarenga MD Unavailable [phone] Ganesh Duenas MD Unavailable [phone] Henry Esqueda MD Unavailable [phone] Chun Ramírez HUMAN RESOURCES MANAGER, [facility] Unavailable Reason for Visit * Reason Comments Medication Refill Encounter Details Date Type Department Care Team (Late st Contact Info) Description 10/16/2021 Refill [facility] Medical Group - Obstetrics & Gynecology [facility] [address] [place] [phone] Ganesh Duenas MD [address] [place] [address] Medication Refill Social History Tobacco [...] on file Sexual Orientation Not on file COVID-19 Exposure Response Date Recorded In the last 10 days, have yo u been in contact with someone who was confirmed or suspected to have Coronavirus/COVID-19? No / Unsure 10/14/2021 1:46 PM CDT documented as of this encounter Miscellaneous Notes * Telephone Encounter - Swapna Pritchard RN - 10/21/2021 3:10 PM CDT Duplicate req documented in this encounter Plan of Treatment Upcoming Encounters Date Type Department Care Team (Late st Contact Info) Description 01/10/2025 1:00 PM CDT Office Visit [facility] Medical [facility] - Obstetrics & Gynecology [facility] [address] [place] [address] Ganesh Duenas MD [address] [place] [address] 01/27/2025 8:30 AM ENVIRONMENTAL PROJECT MANAGER Office Visit [facility] - Primary Care - [place] [address] [place] [phone] Alonzo Flores MD [address] [place] [address] documented as of this encounter Visit Diagnoses Not on filedocumented in this encounter Additional Health Concerns Infection Onset Date Last Indicated Resolved Time Respiratory Rule Out - RPA 04/21/2022 04/21/2022 0 04/21/2022 10:19 AM ENVIRONMENTAL PROJECT MANAGER COVID - 19 04/21/2022 04/21/2022 05/01/2022 12:1 6 AM ENVIRONMENTAL PROJECT MANAGER Assessment Noted Time PHQ-9 Depression Total Score: 0 03/19/19 21 2:00 PM ENVIRONMENTAL PROJECT MANAGER documented as of this encounter Care Teams Pillow Filler Relationship Specialty Start Date End Date Alonzo Flores MD [address] [place] [address] PCP - General Internal Medicine 11/22/14 Melvin Alvarenga MD [address] [place] [address] Consulting Physician Ophthalmology 02/11/16 07/23/22 Ganesh Duenas MD [address] [place] [address] Consulting Physician Obstetrics & Gynecology 12/23/21 Henry Esqueda MD [address] [place] [address] Consulting Physician Ophthalmology 07/24/22 Chun Ramírez, HUMAN RESOURCES MANAGER, ROAD CROSSING GUARD [address] [place] [address] Nurse Practitioner Cardiology 01/22/24 documented as of this encounter
--- OUTSIDE RECORDS SUMMARY | 2024-12-11 08:21 | XMS_ITS | Clinical Summary ---
Author Organization [facility] Address [address] [address] Phone Care Team Providers Care Health Care Administrator Name Role Phone Alonzo Flores MD Primary Care Provider [phone] Ganesh Duenas MD Unavailable [phone] Henry Esqueda MD Unavailable [phone] Chun Ramírez CAMP NURSE, [facility] Unavailable [phone] Allergies No known active allergies Medications vitamin D (CHOLECALCIFEROL) 1000 UNIT Tablet Take 1,000 Units by mouth daily. Active Calcium Carbonate (CALCIUM 600 PO) Take 600 mg by mouth 2 times daily. Active atorvastatin (LIPITOR) 80 MG Tablet Take 80 mg by mouth. 4 01/13/20 25 Active carvedilol (COREG) 6.25 MG Tablet Take 6.25 mg by mouth. 4 01/13/20 25 Active Jardiance 10 MG Tablet Take 10 mg by mouth daily. 4 Active midodrine (PROAMATINE) 5 MG Tablet Take 5 mg by mouth 3 times daily. 4 Active Entresto 24-26 MG Tablet Take 0.5 Tablets by mouth 2 times daily. 4 Active Brilinta 90 MG Tablet Take 90 mg by mouth 2 times daily. 4 Active alendronate (FOSAMAX) 70 MG TabletIndications :Age-related osteoporosis without current pathological fracture Take 1 Tablet by mouth every 7 days. 12 Tablet 3 5 Active oxyquinolone vaginal (Trimo-Ferrell) 0.025-0.01 % Gel Use 1/2 applicator vaginally, twice a week at bedtime. 114 g 5 Active oxyquinolone vaginal (Trimo-Ferrell) 0.025-0.01 % Gel 114 g by Vaginal route once a week. 114 g 5 Active oxybutynin (DITROPAN-XL) 5 MG TABLET SR 24 HR TAKE 1 TABLET BY MOUTH EVERY DAY 90 Tablet 1 5 Active Active Problems Problem Noted Date Diagnosed Date ASHD (arteriosclerotic heart disease) 12/14/2023 Urge urinary incontinence 01/15/2022 COPD (chronic obstructive pulmonary disease) 03/2020 Primary osteoarthritis of fi rst carpometacarpal joint of left hand 02/20/2020 Carpal tunnel syndrome, bilateral 07/26/2018 Fibromyalgia 11/28/2015 Arthritis 11/28/2015 Mixed hyperlipidemia Osteoporosis Resolved Problems Problem Noted Date Diagnosed Date Resolved Date ST elevation myocardial infa rction involving right coronary artery 12/14/2023 01/22/2024 Encounters Date Type Department Care Team Description 10/24/2024 [facility] [place] [address] [place] [address] Alonzo Flores MD Medication Refill 10/03/2024 [facility] [address] [place] [address] Ganesh Duenas MD 09/26/[address] [facility] PHYSICIAN [facility] [address] [place] [address] Ganesh Duenas MD Medication Refill 09/17/2024 [facility] [place] [address] Ganesh Duenas MD Medication Refill from Last 3 Months Immunizations Immunization Administration Dates Next Due COVID-19, MRNA, LNP-S, BIVAL ENT , PFIZER, 30 MCG/0.3 ML (12+ Y/O) 12/02/2021 Covid-19, Mrna, Lnp-s, Pf, 3 0 Mcg/0.3 Ml Dose (Pfizer) 04/30/2020,04/09/2020 Influenza Vaccine greater than 3 yrs 12/14/2013 Influenza Vaccine, Quadrivalent, PF 12/14,12/14/2019,01/06/2019,01/06,11/27/2016 Influenza, High-dose, Quadrivalent 12/18/2022, Influenza, Injectable, Quadrivalent 05/28/2016 Influenza, Trivalent, Adjuvanted, PF 01/01/2024 Influenza, high-dose, trivalent, PF 12/02/2021,0 11/29/2014 11/30/2015 PUR FLU HIGH DOSE (FLUZONE) 11/28/2015 PUR PCV-13 11/28/2015 Pneumococcal Vaccine Adult - 23 Valent 11/14/2008 RSV, Recombinant, Protein Kasper bunit Rsvpref, Adjuvant Recon (Arexvy) 12/18/2022 TD VACCINE 05/14/2009 Zoster Vaccine Recombinant 03/13/2019,01/12/2019 Zoster Vaccine, live 05/27/2016 Family History Medical History Relation Name Comments No Known Problems Father No Known Problems Mother Relation Name Status Comments Father Mother Social History Tobacco Use Types Packs/Day Years Used Date Smoking Tobacco: Every Day Cigarettes 0.5 68.2 Started: 09/25/1957 Smokeless Tobacco: Never Tobacco Cessation:Ready to Q uit: Not Asked; Counseling Given: Not Answered Alcohol Use Standard Drinks/Week Comments No 0 (1 standard drink = 0.6 oz pur e alcohol) [facility] Utilities Answer Date Recorded In the past 12 months has [employer], gas, oil, or water [employer] threatened to shut off services in your home? No 01/22/2024 Social Connection and Isolation Panel Answer Date Recorded In a typical week, how many times do you talk on the phone with family, friends, or neighbors? More than three times a week 01/22/2024 How often do you get togethe r with friends or relatives? More than three times a week 01/22/2024 How often do you attend [facility] or temple services? Never 01/22/2024 Do you belong to any clubs o r organizations such as buddhism groups, unions, fraternal or athletic groups, or school groups? No 01/22/2024 How often do you attend meet ings of the clubs or organizations you belong to? Never 01/22/2024 Are you , , di vorced, , never , or living with a partner? 01/22/2024 AUDIT-C Answer Date Recorded Q1: How often do you have a drink containing alc ohol? Monthly or less 01/22/2024 Q2: How many drinks containi ng alcohol do you have on a typical day when you are drinking? 1 or 2 01/22/2024 Q3: How often do you have si x or more drinks on one occasion? Never 01/22/2024 Overall Financial Resource Strain (CARDIA) Answe r Date Recorded How hard is it for you to pa y for the very basics like food, housing, medical care, and heating? Not very hard 01/22/2024 PHQ-2 Answer Date Recorded Total Score - Questions 1-9 0 06/2023 [facility] - Occupational Stress Questionnaire Answer Date Recorded Do you feel stress - tense, restless, nervous, or anxious, or unable to sleep at night because your mind is troubled all the time - these days? Not at all 01/22/2024 Exercise Vital Sign Answer Date Recorde d On average, how many days pe r week do you engage in moderate to strenuous exercise (like a brisk walk)? 5 days 01/22/2024 On average, how many minutes do you engage in exercise at this level? 50 min 01/22/2024 Hunger Vital Sign Answer Date Recorded Within the past 12 months, y ou worried that your food would run out before you got the money to buy more. Never true 01/22/20 24 Ran Out of Food in the Last Year Not on file 01/22/2024 PRAPARE - Transportation Answer Date Re corded In the past 12 months, has l ack of transportation kept you from medical appointments or from getting medications? No 10/2023 In the past 12 months, has l ack of transportation kept you from meetings, work, or from getting things needed for daily living? No 01/22/2024 Housing Stability Vital Sign Answer Marco Antonio e Recorded In the last 12 months, was t here a time when you were not able to pay the mortgage or rent on time? No 01/22/2024 Number of Times Moved in the Last Year Not on fi le 01/22/2024 At any time in the past 12 m [facility], were you homeless or living in a mcc (including now)? No 01/22/2024 Sexually Active Control Partners Comments Not Currently Comments No Sex and Gender Information Value Date Recorded Sex Assigned at Not on file Legal Sex Female 9:21 PM CDT Gender Identity Not on file Sexual Orientation Not on file Last Filed Vital Signs Vital Sign Reading Time Taken Comments Blood Pressure 122/50 01/22/2024 8:19 AM ASSISTANT SPA MANAGER Pulse 69 01/22/2024 8:19 AM ASSISTANT SPA MANAGER Temperature 36.1 C (97 F) 01/22/2024 8:19 AM ASSISTANT SPA MANAGER Respiratory Rate 18 01/22/2024 8:19 AM ASSISTANT SPA MANAGER Oxygen Saturation 93% 01/22/2024 8:19 AM ASSISTANT SPA MANAGER Inhaled Oxygen Concentration - - Weight 69.6 kg (153 lb 6.4 oz) 01/22/2024 8:19 A M ASSISTANT SPA MANAGER Height 170.2 cm (5' 7) 01/22/2024 8:19 AM ASSISTANT SPA MANAGER Body Mass Index 24.03 01/22/2024 8:19 AM ASSISTANT SPA MANAGER Plan of Treatment Upcoming Encounters Date Type Department Care Team (Late st Contact Info) Description 01/10/2025 1:00 PM CDT Office Visit [facility] - Obstetrics & Gynecology [facility] [address] [place] [address] Ganesh Duenas MD [address] [place] [address] 01/27/2025 8:30 AM ASSISTANT SPA MANAGER Office Visit [facility] - Primary Care - [place] [address] [place] [id number] Alonzo Flores MD [address] [place] [address] Health Maintenance Due Date Last Done Comments TdaP Immunization 1940 Medicare Initial AWV [id number] 02/13/2005 Influenza Immunization (#1) 11/14/202412/14, 12/18/2022, 12/02/2021, Additional history exists SARS-COV-2 Immunization ( season) 2024 01/01/2024, 12/18/2022, 12/02/2021, Additional history exists DEXA Bone Density 05/06/2026 05/06/2024, 12/24/2017 Pneumococcal Immunization (50+ years) Completed 11/28/2015, 11/14/2008 Pneumococcal Immunization Combined Discontinued 11/28/2015, 11/14/2008 Zoster Immunization Completed 03/13/2019, 01/12/2019, 05/27/2016 Respiratory Syncytial Virus (RSV) Immunization (Adult) Completed 12/18/2022 Hepatitis C Virus (HCV) Screening Completed 01/16/2023 Hepatitis B Immunization Aged Out No longer eligible based on patient's age to complete this topic Human Papillomavirus (HPV) Immunization Aged Out No longer eligible based on patient's age to complete this topic Meningococcal Immunization (ACWY) Aged Out No longer eligible based on patient's age to complete this topic Rotavirus Immunization Aged Out No lo nger eligible based on patient's age to complete this topic Procedures Procedure Name Priority Date/Time Associated Diagnosis Comments [facility] BONE DENSITOMETRY AXIAL SKELETON Routine 05/06/2024 2:00 PM ASSISTANT SPA MANAGER Asymptomatic postmenopausal status Encounter for screening for osteoporosis HEPATITIS C ANTIBODY Routine 01/16/2023 8:37 AM CDT Encounter for hepatitis C screening test for low risk patient from Last 3 Months or Most Recently Relevant to Health Maintenance Results * ANNE BONE DENSITOMETRY AXIAL SKELETON (05/06/2024 2:00 PM ASSISTANT SPA MANAGER) Anatomical Region Laterality Modality BODY N/A Computed Radiogr aphy 05/07/2024 11:3 2 AM ASSISTANT SPA MANAGER Impressions 05/07/2024 11:35 AM ASSISTANT SPA MANAGER IMPRESSION: Osteoporosis. REFERENCE: Bone mineral density: T-Score: Normal (T-score above or = -1.0) Low bone mass (T-score between -1.0 and -2.5) replaces the previously used term osteopenia Osteoporosis (T-score = or below -2.5) Z-Score: Within the expected range for age (Z-score above -2.0) Below the expected range for age (Z-score is -2.0 or below) Please see below follow up recommendations. Medical evaluation for secondary causes of low bone mineral density may be appropriate. FRAX is a World Health Organization validated fracture risk assessment tool that calculates a person's 10 year probability of a major osteoporosis related fracture and hip fracture. According to the National Osteoporosis Foundation guidelines, postmenopausal women and men age 50 or older with low bone mass and a 10 year probability of a major osteoporosis related fracture = or greater than 20% or a 10 year probability of a hip fracture = or greater than 3% should be considered for pharmacological treatment for the prevention of osteoporosis. For further information, including treatment recommendations, please refer to the 2019 ISCD Official Positions (http://www.iscd.org) and the NOF's Clinician's Guide to Prevention and Treatment of Osteoporosis (http://www.nof.org/professionals/clinical-guidelines) Narrative 05/07/2024 11:35 AM ASSISTANT SPA MANAGER EXAM DESCRIPTION: ANNE BONE DENSITOMETRY AXIAL SKELETON REASON FOR STUDY: 84 y/o year old F with given history of: Asymptomatic postmenopausal status, Encounter for screening for osteoporosis Manager Law/Model: [employer] (S/N [id number]) Facility LSC value of 0.028 for the AP spine and 0.033 for the femur. CLINICAL INFORMATION: Current height: 68 inches Maximum height: 68 inches Weight: 153.4 pounds Risk factors: Prior fracture, parent with hip fracture and history of smoking. COMPARISON: 12/24/2017 FINDINGS: AP LUMBAR SPINE L1-L4: Total BMD is 1.089 g/cm2 T-score is -0.9 This is a 9.7% increase in comparison to prior exam which is statistically significant. LEFT HIP: Total BMD is 0.616 g/cm2 T-score is -3.1 This is a 14.8% decrease in comparison to prior exam which is statistically significant. Femoral neck BMD is 0.596 g/cm2 T-score is -3.2 FRAX: FRAX not reported due to T-scores of hip, femoral neck and/or spine being at or below -2.5 (Osteoporosis). THIS IS AN ELECTRONICALLY VERIFIED FINAL REPORT 05/07/2024 11:32 AM - Electronically signed by Maddie Carson M.D. TW: TW Report ID: [id number] Reading Location: [place] [address] Procedure Note Maddie Carson MD - 05/07/2024 EXAM DESCRIPTION: [facility] BONE DENSITOMETRY AXIAL SKELETON REASON FOR STUDY: 84 y/o year old F with given history of: Asymptomatic postmenopausal status, Encounter for screening for osteoporosis Manager Law/Model: [employer] (S/N [id number]) Facility LSC value of 0.028 for the AP spine and 0.033 for the femur. CLINICAL INFORMATION: Current height: 68 inches Maximum height: 68 inches Weight: 153.4 pounds Risk factors: Prior fracture, parent with hip fracture and history of smoking. COMPARISON: 12/24/2017 FINDINGS: AP LUMBAR SPINE L1-L4: Total BMD is 1.089 g/cm2 T-score is -0.9 This is a 9.7% increase in comparison to prior exam which is statistically significant. LEFT HIP: Total BMD is 0.616 g/cm2 T-score is -3.1 This is a 14.8% decrease in comparison to prior exam which is statistically significant. Femoral neck BMD is 0.596 g/cm2 T-score is -3.2 FRAX: FRAX not reported due to T-scores of hip, femoral neck and/or spine being at or below -2.5 (Osteoporosis). THIS IS AN ELECTRONICALLY VERIFIED FINAL REPORT 05/07/2024 11:32 AM - Electronically signed by Maddie Carson M.D. TW: Report ID: [id number] Reading Location: [id number] IMPRESSION: Osteoporosis. REFERENCE: Bone mineral density: T-Score: Normal (T-score above or = -1.0) Low bone mass (T-score between -1.0 and -2.5) replaces the previously used term osteopenia Osteoporosis (T-score = or below -2.5) Z-Score: Within the expected range for age (Z-score above -2.0) Below the expected range for age (Z-score is -2.0 or below) Please see below follow up recommendations. Medical evaluation for secondary causes of low bone mineral density may be appropriate. FRAX is a World Health Organization validated fracture risk assessment tool that calculates a person's 10 year probability of a major osteoporosis related fracture and hip fracture. According to the National Osteoporosis Foundation guidelines, postmenopausal women and men age 50 or older with low bone mass and a 10 year probability of a major osteoporosis related fracture = or greater than 20% or a 10 year probability of a hip fracture = or greater than 3% should be considered for pharmacological treatment for the prevention of osteoporosis. For further information, including treatment recommendations, please refer to the 2019 ISCD Official Positions (http://www.iscd.org) and the NOF's Clinician's Guide to Prevention and Treatment of Osteoporosis (http://www.nof.org/professionals/clinical-guidelines) Alonzo Flores MD IMG DEXA ORDERABLES Final Result * HEPATITIS C ANTIBODY (01/16/2023 8:37 AM CDT) hepatitis C antibody 0.19 <1 S/CO [facility] ARCH [id number] 01/16/2023 11:59 PM CDT [facility] Comment: Signal/Cutoff ratio < 0.79 is Nondetected Signal/Cutoff ratio 0.80-0.99 is Grayzone Signal/Cutoff ratio > 0.99 is Detected Supplemental assays are recommended if signal/cutoff ratio is >/=1.00. Signal/cutoff ratio result >/= 5.00 is 97% predictive of positivity for recombinant immunoblot assay (RIBA) and will be reported to the [place] Department of Public Health as required. Blood Venipuncture / Unknown 01/16/2023 8:37 AM CDT 01/16/2023 8:37 AM CDT Alonzo Flores MD CHEMISTRY ORDERABLES An l Result [facility] [address] [place] [address], from Last 3 Months or Most Recently Relevant to Health Maintenance Insurance MEDICARE C [employer] Care Teams Health Care Administrator Relationship Specialty Start Date End Date Alonzo Flores MD [address] [place] [address] PCP - General Internal Medicine 11/22/14 Ganesh Duenas MD [address] [place] [address] Consulting Physician Obstetrics & Gynecology 12/23/21 Henry Esqueda MD [address] [place] [address] Consulting Physician Ophthalmology 07/24/22 Chun Ramírez, CAMP NURSE, SECURITY ARCHITECT [address] [place] [address] Nurse Practitioner Cardiology 01/22/24
--- OUTSIDE RECORDS SUMMARY | 2024-12-11 08:21 | XMS_ITS | Encounter Summary ---
Author Organization [facility] Address [address] [place] [address] Phone Care Team Providers Care Piper Helper Name Role Phone Alonzo Flores MD Primary Care Provider [phone] Melvin Alvarenga MD Unavailable [phone] Ganesh Duenas MD Unavailable [phone] Henry Esqueda MD Unavailable [phone] Chun Ramírez MEDICAL FRONT DESK SPECIALIST, [facility] Unavailable Reason for Visit * Reason Comments Medication Refill Encounter Details Date Type Department Care Team (Late st Contact Info) Description 10/15/2021 Refill [facility] - Obstetrics & Gynecology [facility] [address] [place] [address] Ganesh Duenas MD [address] [place] [address] Medication Refill Social History Tobacco [...] Encounter - Swapna Pritchard RN - 10/21/2021 3:15 PM CDT Medication failed the protocol, provider to review and approve the medication order if appropriate. This medication has never been prescribed by you. Please refill if appropriate. Requested Prescriptions Pending Prescriptions Disp Refills Trimo-Echeverria 0.025-0.01 % Gel [Pharmacy Med Name: TRIMO-ECHEVERRIA GEL 113.4GM] 113.4 g Sig: USE 1/2 APPLICATORFUL EVERY NIGHT AT BEDTIME WEEKLY Not Delegated - Off Protocol Failed - 10/15/2021 1:43 PM Failed - This refill cannot be delegated Failed - Active on medication list Passed - Visit with relevant provider in past 12 months or upcoming 90 days Recent Visits Date Type Provider Dept 10/14/21 Office Visit Alonzo Flores MD [facility] 09/03/21 Office Visit Alonzo Flores MD [facility] 06/18/21 Office Visit Ganesh Duenas MD [facility] [place] 02/26/21 Office Visit Ganesh Duenas MD [facility] [employer] [facility] [place] 12/27/20 Office Visit Alonzo Flores MD [facility] Showing recent visits within past 365 days and meeting all other requirements Future Appointments Date Type Provider Dept 12/24/21 Appointment Ganesh Duenas MD [facility] Operator [place] 01/07/22 Appointment [facility] Flores [facility] Showing future appointments within next 90 days and meeting all other requirements documented in this encounter Plan of Treatment Upcoming Encounters Date Type Department Care Team (Late st Contact Info) Description 01/10/2025 1:00 PM CDT [facility] - [facility]stetrics & [facility]necology [facility] [address] [place] [address] Ganesh Duenas MD [address] [place] [address] 01/27/2025 8:30 AM INSULATOR CUTTER AND FORMER Office Visit [facility] - Primary Care - [place] [address] [place] [id number] Alonzo Flores MD [address] [place] [address] documented as of this encounter Visit Diagnoses Not on filedocumented in this encounter Additional Health Concerns Infection Onset Date Last Indicated Resolved Time Respiratory Rule Out - RPA 04/21/2022 04/21/2022 0 04/21/2022 10:19 AM INSULATOR CUTTER AND FORMER COVID - 19 04/21/2022 04/21/2022 05/01/2022 12:1 6 AM INSULATOR CUTTER AND FORMER Assessment Noted Time PHQ-9 Depression Total Score: 0 03/19/19 21 2:00 PM INSULATOR CUTTER AND FORMER documented as of this encounter Care Teams Piper Helper Relationship Specialty Start Date End Date Alonzo Flores MD [address] [place] [address] PCP - General Internal Medicine 11/22/14 Melvin Alvarenga MD [address] [place] [address] Consulting Physician Ophthalmology 02/11/16 07/23/22 Ganesh Duenas MD [address] [place] [address] Consulting Physician Obstetrics & Gynecology 12/23/21 Henry Esqueda MD [address] [place] [address] Consulting Physician Ophthalmology 07/24/22 Chun Ramírez, MEDICAL FRONT DESK SPECIALIST, TELLER HEAD [address] [place] [address] Nurse Practitioner Cardiology 01/22/24 documented as of this encounter
--- NOTE | 2024-12-11 08:28 | ED.GENADULT ---
HPI - General Adult General Chief complaint: Upper Respiratory Infection Stated complaint: Cough/Runny Nose Time Seen by Provider: 12/11/24 08:32 Source: patient Mode of arrival: ambulatory Limitations: no limitations History of Present Illness HPI narrative: 84 y/o female presented with c/o cough and runny nose x1 week. Says cough is frequent and non productive. denies associated Sob, wheezing, chest pain, palpitations, n/v/d/f/c. Taking an unknown otc 'cold pill.' Hx smoking. Related Data Home Medications ?Medication ?Instructions ?Recorded ?Confirmed ?Last Taken ?Type alendronate 70 mg tablet mg PO 12/11/24 Unknown History aspirin 81 mg tablet,delayed mg 12/11/24 Unknown History release atorvastatin 80 mg tablet mg 12/11/24 Unknown History calcium carbonate (Calcium 600) 600 mg PO DAILY 12/11/24 Unknown History carvedilol 6.25 mg tablet mg 12/11/24 Unknown History cholecalciferol (vitamin D3) 25 1,000 unit PO DAILY 12/11/24 Unknown History mcg (1,000 unit) capsule midodrine 5 mg tablet mg 12/11/24 Unknown History oxybutynin chloride 5 mg mg PO 12/11/24 Unknown History tablet,extended release 24 hr sacubitril 24 mg-valsartan 26 mg tablet 12/11/24 Unknown History tablet (Entresto) ticagrelor 90 mg tablet (Brilinta) mg 12/11/24 Unknown History Review of Systems Review of Systems: CONSTITUTIONAL: Denies body aches, fever, chills, or sweats. EYES: Denies visual changes, redness, or discharge. ENT: reports rhinorrhea, Denies congestion, sore throat, or otalgia. CARDIOVASCULAR: Denies chest pain, palpitations, or edema. RESPIRATORY: Reports cough, denies sob, wheezing. GASTROINTESTINAL: Denies abdominal pain, nausea, vomiting, or diarrhea. NEUROLOGIC: Denies headache All systems reviewed & are unremarkable except as noted in HPI and below PMFSH Past Medical History Medical History (Updated 12/11/24 @ 09:12 by Cathy Kowalski APRN) CAD (coronary artery disease) Social History Social History (Updated 12/11/24 @ 08:43 by Cathy Kowalski APRN) Smoking packs per day: 0.5 Smoking cigarettes per day: 10.0 Years smoked: 50 Smoking pack-years: 25.00 Smoking status: Current every day smoker Comments At time of signature, I have reviewed and agree with nursing past medical, surgical, social and family history unless otherwise noted. Please see nursing chart for further information. There is no relevant family history pertinent to the presenting complaint Exam Narrative: GENERAL: Well-appearing, in no acute distress. EYES: EOMI. No redness or drainage. Conjunctivae normal. ENT: Mucous membranes pink and moist. rhinorrhea noted. NECK: Normal AROM. Supple. CHEST: No respiratory distress. Lungs clear to all light, diminished bases. 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 HEART: Regular rate and rhythm. EXTREMITIES: Normal range of motion. No edema. SKIN: Warm, dry, no rash. Capillary refill normal. NEURO: Alert and oriented x3. Gait steady. PSYCH: Normal affect. Course Course Emergency Course: Patient is aware of diagnosis, understands and agrees to treatment plan. Anticipatory guidance given. Patient agrees to follow-up as directed and is aware of reasons to seek care at the emergency department. Portions of this record may have been created with voice recognition software Level of Care: Express Care Visit Vital Signs Vital signs: Vital Signs Temperature 98 F 12/11/24 08:21 Pulse Rate 58 L 12/11/24 08:21 Respiratory Rate 16 12/11/24 08:21 Blood Pressure 119/50 L 12/11/24 08:21 Pulse Oximetry 100 12/11/24 08:21 Oxygen Delivery Room Air 12/11/24 08:21 Temperature 98 F 12/11/24 08:21 Pulse Rate 58 L 12/11/24 08:21 Respiratory Rate 16 12/11/24 08:21 Blood Pressure 119/50 L 12/11/24 08:21 Pulse Oximetry 100 12/11/24 08:21 Oxygen Delivery Room Air 12/11/24 08:21 Medical Decision Making MDM Narrative Medical decision making narrative: Discussed physical exam findings and CXR. Reviewed RX. Advised supportive measures and signs/symptoms to go to the ER. Pt is appropriate for outpt treatment and f/u with pcp this week. Differential Diagnosis Differential Diagnosis: influenza, covid, sinusitis, OM, strep pharyngitis, URI, bronchitis, pneumonia, chf Vital Signs Vital Signs: Vital Signs Temperature 98 F 12/11/24 08:21 Pulse Rate 58 L 12/11/24 08:21 Respiratory Rate 16 12/11/24 08:21 Blood Pressure 119/50 L 12/11/24 08:21 Pulse Oximetry 100 12/11/24 08:21 Oxygen Delivery Room Air 12/11/24 08:21 Temperature 98 F 12/11/24 08:21 Pulse Rate 58 L 12/11/24 08:21 Respiratory Rate 16 12/11/24 08:21 Blood Pressure 119/50 L 12/11/24 08:21 Pulse Oximetry 100 12/11/24 08:21 Oxygen Delivery Room Air 12/11/24 08:21 Imaging Data Radiologist's impression: Patient: Simran Rice : 1940 MR#: [id number] Age: 84 Acct:[id number] Loc: [facility] ADM Date: 12/11/24Attending Dr: Examination: XR chest 2V Clinical History: COUGH, HX SMOKING Comparison: None Technique: PA and Lateral Findings: Cardiomediastinal silhouette normal size and configuration. Lungs clear. Hyperinflation. No acute bony abnormality. Osteopenia. IMPRESSION: 1. No acute cardiopulmonary findings. Discharge Plan Discharge Clinical Impression: Bronchitis Patient Disposition: Home Condition: Stable Instructions: Antibiotic Form, Pneumonia (ED) Additional Instructions: Pneumonia is a lung infection that can cause a fever, cough, and trouble breathing. How it spreads: When someone with bacterial pneumonia coughs, sneezes, or talks, they release respiratory droplets into the air that can be inhaled by others.?You can also get pneumonia by touching a contaminated surface or object and then touching your mouth or nose. Take antibiotics as directed until complete. eat small frequent meals. Get lots of rest and drink fluids. Alternate Tylenol and ibuprofen for pain/fever Opsh-kjn-[id number] cough medication can cause drowsiness, take according to package directions If you have nasal congestion, you can take Zyrtec, Claritin along with Flonase spray You're generally contagious for around 48 hours after starting antibiotics and your fever goes away.? To prevent the spread of pneumonia, you can:? Get vaccinated? Wash your hands often with soap and water for 20 seconds? Cover your mouth with a tissue when you cough or sneeze? Avoid people who are already sick with pneumonia? Stay home when you have pneumonia Call your Primary Care Doctor and make a follow-up appointment in 3 days. Go to the ER for worsening symptoms or concerns; trouble breathing, persistent cough, chest pain, dizziness, fever etc Patient Language: [place] Prescriptions: New benzonatate 200 mg capsule 200 mg PO TID PRN (Reason: cough) Qty: 20 0RF amoxicillin-pot clavulanate 875-125 mg tablet 1 tablet PO Q12H 7 Days Qty: 14 0RF azithromycin [Zithromax Z-Jeferson] 250 mg tablet See Rx Instructions .ROUTE .COMPLEX Qty: 6 0RF Rx Instructions: For 250 mg dose pack: take 500 mg today (day 1), then 250 mg for 4 days (days 2-5) No Action atorvastatin 80 mg tablet carvedilol 6.25 mg tablet alendronate 70 mg tablet PO midodrine 5 mg tablet aspirin 81 mg tablet,delayed release (DR/EC) oxybutynin chloride 5 mg tablet extended release 24hr PO sacubitril-valsartan [Entresto] 24-26 mg tablet ticagrelor [Brilinta] 90 mg tablet calcium carbonate [Calcium 600] 600 mg calcium (1,500 mg) tablet 600 mg PO DAILY cholecalciferol (vitamin D3) 25 mcg (1,000 unit) capsule 1,000 unit PO DAILY Follow-up/Referrals: Sandra,Alonzo Gonsalez MD [Primary Care Provider, Unknown] Time of Disposition: 09:07
== END 2024-12-11 09:15 | disposition home or self-care (01) ==
PROVIDERS: Emergency Provider Nurse Practitioner Family; PCP Internal Medicine
DX: J40 Bronchitis, not specified as acute or chronic (principal); F17.210 Nicotine dependence, cigarettes, uncomplicated; I25.10 Atherosclerotic heart disease of native coronary artery without angina pectoris; Z79.82 Long term (current) use of aspirin
CPT/HCPCS: 71046; 99203; G0463